=== PATIENT | female | born 1995 | race Two or more races ===

== ENCOUNTER 2019-11-10 04:02 | Emergency (ER) | payer SELFPAY ==
[2019-11-10 06:14] LABS: ABS Lymphocytes 0.8 10^3/ul (1.0-4.8); ABS Monocytes 0.9 10^3/ul (0-0.8); ABS Neutrophils 12.8 10^3/ul (1.5-7.7); Eosinophil % 0.2 %; Hematocrit 40 % (35-47); Hemoglobin 13.7 g/dL (12.0-16.0); Lymphocyte % 5.6 %; Mean Corpuscular HGB Conc 34 g/dL (31-36); Mean Corpuscular Hemoglobin 30 pg (27-31); Mean Corpuscular Volume 86 fL (80-97); Mean Platelet Volume 9.3 fL (7.4-10.4); Platelet Count 238 10^3/uL (150-450); Red Blood Count 4.64 10^6 /uL (3.70-4.87); Red Cell Distribution Width 13 % (10-15); White Blood Count 14.6 10^3/uL (3.5-10.8)
[2019-11-10] MEDS: NS 0.9% 1000 ML** 2,000 ML IV ONE (06:22)
[2019-11-10 06:32] LABS: ALT 15 U/L (7-52); AST 11 U/L (13-39); Albumin 4.4 g/dL (3.2-5.2); Albumin/Globulin Ratio 1.4 (1-3); Alkaline Phosphatase 71 U/L (34-104); Anion Gap 7 mmol/L (2-11); BUN/Creatinine Ratio 15.3 (8-20); Blood Urea Nitrogen 11 mg/dL (6-24); CO2 Carbon Dioxide 25 mmol/L (22-32); Calcium 9.3 mg/dL (8.6-10.3); Chloride 104 mmol/L (101-111); EGFR African American 118.5 (>60); EGFR Non-African American 97.9 (>60); Globulin 3.2 g/dL (2-4); Glucose 109 mg/dL (70-100); Magnesium 1.9 mg/dL (1.9-2.7); Potassium 3.9 mmol/L (3.5-5.0); Sodium 136 mmol/L (135-145); Total Protein 7.6 g/dL (6.4-8.9)
[2019-11-10 06:39] LABS: HCG Pregnancy < 0.60 mIU/mL
[2019-11-10 07:07] LABS: T4, Total 9.53 mcg/dL (6.09-12.23)
--- NOTE | 2019-11-10 07:09 | ED ---
Palpitations / Dysrhythmia - HPI Summary HPI Summary: This patient is a 24-year-old female with history of anxiety who presents to the ED with symptoms of palpitations and heart racing since last evening at around 10 PM. She states she has had this in the past, and usually believes this is related to her anxiety, however it tends to dissipate after several minutes or so. This has been persistent since last night and although she states she has been a little anxious (d/t the heart-racing), she has felt calm for awhile now and still feels this. She continues to feel this way despite being able to sleep. States in 2015, she was seen for same and wore a holter monitor with normal findings. Dx with anxiety. She does admit to being ill recently with cold symptoms such as stuffy nose, rhinorrhea, head cold and mild cough. No production. No abd pain, chest pain, SOB. No recent travel, leg pain, OCP use or smoking history. No back pain, MAN or other symptoms. No current modifying factors. - History of Current Complaint Chief Complaint: EDDysrhythmPalp Time Seen by Provider: 11/10/19 05:40 Hx Obtained From: Patient Onset/Duration: Sudden Onset Timing: Constant Severity Initially: Mild Severity Currently: Mild Character: Fast Aggravating: Rest Associated Signs & Symptoms: Negative - Risk Factors Cardiac: Negative Pulmonary Embolism: Negative Atrial Fibrillation: Negative - Allergy/Home Medications Allergies/Adverse Reactions: Allergies Allergy/AdvReac Type Severity Reaction Status Date / Time No Known Allergies Allergy Verified 08/24/18 15:10 Home Medications: Home Medications NK [No Home Medications Reported] 11/10/19 [History Confirmed 11/10/19] PMH/Surg Hx/FS Hx/Imm Hx Previously Healthy: Yes Endocrine/Hematology History: Denies: Hx Diabetes Cardiovascular History: Denies: Hx Hypertension History: Denies: Hx Renal Disease - Immunization History Date of Influenza Vaccine: 07/2019 Hx Pertussis Vaccination: No Immunizations Up to Date: Yes Infectious Disease History: No Infectious Disease History: Denies: Traveled Outside the [place] in Last 30 Days - Social History Occupation: Employed Full-time Lives: With Family Alcohol Use: None Hx Substance Use: No Substance Use Type: Reports: None Hx Tobacco Use: No Smoking Status (MU): Never Smoked Tobacco Review of Systems Negative: Fever, Chills, Fatigue, Skin Diaphoresis Positive: Palpitations - tachy per patient. Negative: Chest Pain Negative: Shortness Of Breath, Cough Genitourinary: Negative Positive: no symptoms reported, see HPI Negative: Arthralgia, Myalgia Skin: Negative Negative: Headache, Weakness, Paresthesia, Numbness, Syncope Positive: Anxious All Other Systems Reviewed And Are Negative: Yes Physical Exam Triage Information Reviewed: Yes Vital Signs On Initial Exam: Initial Vitals Temp Pulse Resp BP Pulse Ox 98.8 F 159 20 168/101 99 11/10/19 04:03 11/10/19 04:03 11/10/19 04:03 11/10/19 04:03 11/10/19 04:03 Vital Signs Reviewed: Yes Appearance: Positive: Well-Appearing, Well-Nourished Skin: Positive: Warm, Skin Color Reflects Adequate Perfusion Head/Face: Positive: Normal Head/Face Inspection Eyes: Positive: EOMI, MARISSA, Conjunctiva Clear Neck: Positive: Supple, No Lymphadenopathy Respiratory/Lung Sounds: Positive: Clear to Auscultation, Breath Sounds Present Cardiovascular: Positive: Pulses are Symmetrical in both Upper and Lower Extremities, Tachycardia. Negative: Leg Edema Left, Leg Edema Right Musculoskeletal: Positive: Normal, Strength/ROM Intact Neurological: Positive: Sensory/Motor Intact, Alert, Oriented to Person Place, Time, Speech Normal Psychiatric: Positive: Anxious Procedures - Sedation Patient Received Moderate/Deep Sedation with Procedure: No Diagnostics - Vital Signs Vital Signs Temp Pulse Resp BP Pulse Ox 11/10/19 06:25 102 18 132/96 99 11/10/19 04:03 98.8 F 159 20 168/101 99 - Laboratory Lab Results: Lab Results 11/10/19 11/10/19 11/10/19 Range/Units 06:03 06:03 06:03 WBC 14.6 H (3.5-10.8) 10^3/uL RBC 4.64 (3.70-4.87) 10^6 /uL Hgb 13.7 (12.0-16.0) g/dL Hct 40 (35-47) % MCV 86 (80-97) fL MCH 30 (27-31) pg MCHC 34 (31-36) g/dL RDW 13 (10-15) % Plt Count 238 (150-450) 10^3/uL MPV 9.3 (7.4-10.4) fL Neut % (Auto) 88.0 % Lymph % (Auto) 5.6 % Morrison % (Auto) 5.9 % Eos % (Auto) 0.2 % Baso % (Auto) 0.3 % Absolute Neuts (auto) 12.8 H (1.5-7.7) 10^3/ul Absolute Lymphs (auto) 0.8 L (1.0-4.8) 10^3/ul Absolute Monos (auto) 0.9 H (0-0.8) 10^3/ul Absolute Eos (auto) 0.0 (0-0.6) 10^3/ul Absolute Basos (auto) 0.0 (0-0.2) 10^3/ul Absolute Nucleated RBC 0.0 10^3/ul Nucleated RBC % 0.0 Sodium 136 (135-145) mmol/L Potassium 3.9 (3.5-5.0) mmol/L Chloride 104 (101-111) mmol/L Carbon Dioxide 25 (22-32) mmol/L Anion Gap 7 (2-11) mmol/L BUN 11 (6-24) mg/dL Creatinine 0.72 (0.51-0.95) mg/dL Est GFR ( Amer) 118.5 (>60) Est GFR (Non-Af Amer) 97.9 (>60) BUN/Creatinine Ratio 15.3 (8-20) Glucose 109 H (70-100) mg/dL Lactic Acid 0.9 (0.5-2.0) mmol/L Calcium 9.3 (8.6-10.3) mg/dL Magnesium 1.9 (1.9-2.7) mg/dL Total Bilirubin 0.50 (0.2-1.0) mg/dL AST 11 L (13-39) U/L ALT 15 (7-52) U/L Alkaline Phosphatase 71 (34-104) U/L Troponin I 0.00 (<0.03) ng/mL Total Protein 7.6 (6.4-8.9) g/dL Albumin 4.4 (3.2-5.2) g/dL Globulin 3.2 (2-4) g/dL Albumin/Globulin Ratio 1.4 (1-3) TSH Pending Thyroxine (T4) Pending Beta HCG, Quant < 0.60 mIU/mL Result Diagrams: 11/10/19 06:03 11/10/19 06:03 Lab Statement: Any lab studies that have been ordered have been reviewed, and results considered in the medical decision making process. Course/Dx - Course Course Of Treatment: Patient was noted to be tachycardic at 159 on arrival. Other vital signs are stable. She is afebrile. EKG shows sinus tachycardia with a rate of 143 after patient arrived in the room. She does not appear to be anxious, however she does have a cough on exam. Patient is not diaphoretic and nontoxic appearing. Lungs CTA, tachy. Labs obtained which are WNL including a troponin of 0.00. She does not have elevated white count, but no other clinical signs of infection. She was given 2L fluids. Influenza negative. Continues to remain tachy, although less between 125-135. Pt was given Ativan 1mg. She states this improved her anxiety, and she denies any anxious feelings on re-examination. However, monitor continues to show persistent tachy with sinus. CTA and drug screen obtained. Drug screen pending , CTA negative for any PE. Continues to be tachycardic at 130. Discussed this with hospitalist, Dr. Talley who will accept for admission. - Diagnoses Provider Diagnoses: Tachycardia - Physician Notifications Discussed Care Of Patient With: Kj Talley Instructed by Provider To: Admit As Inpatient Discharge ED - Sign-Out/Discharge Documenting (check all that apply): Patient Departure - Discharge Plan Condition: Fair Disposition: ADMITTED TO [facility] Patient Education Materials: Anxiety (ED), Tachycardia (ED) Referrals: Gera Loya PA [Primary Care Provider] - Wiliam Machuca DO [Medical Doctor] - Additional Instructions: I recommend following up with cardiology This may be related to your anxiety, however due to the persistence of this tachycardia, I suggest following up for another workup through our cardiology department If you develop any shortness of breath or chest pain, please return to the ED Drink plenty of water - Billing Disposition and Condition Condition: FAIR Disposition: Admitted to [facility]
[2019-11-10 07:11] LABS: TSH (Thyroid Stimulating Horm) 1.09 mcIU/mL (0.34-5.60)
[2019-11-10] MEDS ORDERED: LORazepam INJ* 2 MG/ML 1 ML VIAL IV PUSH ONE (08:00)
[2019-11-10] MEDS ORDERED: Lorazepam PYXIS KEY PRN (08:00)
[2019-11-10] MEDS ORDERED: Lorazepam PYXIS KEY ONE (08:11)
[2019-11-10 08:19] LABS: Influenza A Molecular Negative (Negative); Influenza B Molecular Negative (Negative)
[2019-11-10] MEDS ORDERED: NS 0.9% 1000 ML** 1,000 ML IV ONE (08:43)
[2019-11-10] MEDS ORDERED: Iohexol 350* (CONTRAST) 500 ML MDV IV ONE (09:34)
[2019-11-10] MEDS ORDERED: Perflutren Lipid Microsphere* 3 ML VIAL ONE (14:27)
--- NOTE | 2019-11-10 15:01 | CONS ---
HOSPITAL MEDICINE CONSULTATION REPORT: DATE OF CONSULT: 11/10/19 - EMERGENCY DEPT PROVIDER: Keisha Elam NP. ATTENDING PROVIDER: KEILA Bender. CONSULTING PHYSICIAN: Kj Talley MD (dictated by Keisha Elam NP). REASON FOR CONSULT: Tachycardia. HISTORY OF PRESENT ILLNESS: Ms. Mandujano is a 24-year-old female with past medical history significant for anxiety, mild acid reflux, history of left foot edema, who presented to the emergency room with complaints of palpitations. The patient reports that last evening she was having hot and cold episodes and that at approximately 10:30 last night, she started having palpitations and high heart rates. The patient reports that she was able to sleep on and off and at approximately 4:30 this morning, the palpitations were worse, so she presented to the emergency room for further evaluation. The patient does report that she recently started with rhinorrhea and a sore throat. The patient denies any excessive use of caffeine. The patient does report that she drinks 2 cups of Vietnamese press coffee daily. Denies any other soda intake. She denies any over-the- counter medications. Denies any other caffeine intake such as Monster. She denies any tobacco use. She denies any recent travel. The patient does report she did receive influenza vaccine in the fall. While in the emergency room, the patient had routine lab work drawn. She had a troponin that was negative. She was persistently tachycardic with an EKG showing sinus tachycardia in the 130s to 140s. Due to these findings, Hospital Medicine was asked to see and evaluate the patient for admission. PAST MEDICAL HISTORY: Significant for: 1. Anxiety, untreated. 2. GERD, untreated. 3. Left foot edema, chronic. PAST SURGICAL HISTORY: None. HOME MEDICATIONS: None. ALLERGIES: No known drug allergies. FAMILY HISTORY: Paternal grandfather with a history of stroke. Father with hypertension. Paternal grandfather and father with diabetes. Mother with cervical cancer. SOCIAL HISTORY: Denies any tobacco, alcohol, or illicit drug use. She lives with her sister. Surrogate decision maker in the event she is unable to make her own decisions is her sister. She is a full code. REVIEW OF SYSTEMS: She does report feeling cold and hot, but unknown about fevers. She denies any chest pain, edema, cough, hemoptysis, shortness of breath. No nausea, vomiting, diarrhea, or abdominal pain. She denies any gross hematuria, dysuria, focal weakness, sensory loss, visual complaints, dysphagia, arthralgias, myalgias, rashes, lesions, open sores, psychosis, or anxiety. PHYSICAL EXAM: General: At this time, Ms. Mandujano is a 24-year-old female, she is alert and oriented x3, resting on the stretcher in the emergency room, she is in no acute distress. Vital Signs: Blood pressure 123/91, heart rate 124, respirations 21, O2 saturation 98%, temperature was 98.8. HEENT: Head is atraumatic, normocephalic. Eyes: EOMs are intact. Sclerae anicteric and not pale. Oral mucosa is moist. Neck is supple. Lungs are clear to auscultation bilaterally. No wheezes, rales, or rhonchi. Cardiac: S1, S2. Tachycardic. No murmurs, rubs, or gallops. Abdomen is soft and nontender. Bowel sounds are present x4. Extremities: She is able to move all 4 extremities. No clubbing or cyanosis. Pedal pulses are +2 bilaterally. Neurologic: She is awake, alert , oriented x3. Speech is clear. Thought process is intact. Skin is intact. LABORATORY DATA AND DIAGNOSTIC STUDIES: WBCs are 14.6, RBCs 4.64, hemoglobin 13.7, hematocrit is 40, platelet count is 238. Sodium 136, potassium 3.9, chloride 104, carbon dioxide is 25, anion gap of 7, BUN is 11, creatinine 0.72, glucose is 109. Lactic acid 0.9. Calcium 9.3. Magnesium 1.9. Total bilirubin 0.50, AST is 11, ALT is 15, alkaline phosphatase is 71. Troponin is 0.00 x2. Beta-hCG quantitative is less than 0.60. TSH is 1.09, T4 is 9.53. Flu A and B are both negative. She had a CTA of the chest, limited study. Within the limitations of the study , there is no pulmonary artery filling defect to suggest pulmonary embolism. She had a chest x-ray, radiologist's impression: No active cardiopulmonary disease. She had electrocardiogram, which showed sinus tachycardia at a rate of 129, no ST or T wave changes. IMPRESSION AND PLAN: Ms. Mandujano is a 24-year-old female with a past medical history significant for anxiety, gastroesophageal reflux disease, and lymphedema to the left foot, who presented to the emergency room with complaints of palpitations. Our recommendations are as follows: Palpitations. I would get a transthoracic echocardiogram. We will start her on propranolol 10 mg for tachycardia. If her transthoracic echocardiogram is within normal limits, I feel the patient could be discharged home and follow up with her primary care provider as an outpatient for further evaluation of her chronic tachycardia. I suspect that this tachycardia could be exacerbated by her anxiety and propranolol should help with anxiety and her tachycardia. I have discussed this with Khloe Mendes in the emergency room. She is in agreement with the plan. Discharge instructions will be given per the emergency room. The patient can return to the emergency room as needed for palpitations associated with chest pain and shortness of breath. I have discussed this with my attending Dr. Kareem Talley; he is in agreement with my plan. KEISHA ELAM, ELROY [id number]/[facility] #: [id number] HAIM
--- NOTE | 2019-11-10 15:17 | ECHO ---
*[facility]* [place] [address] Fax #: [phone] Transthoracic Echocardiogram Patient: Avelina Rosario : 1995 Study Date: 11/10/2019 Age: 24 Gender: F HR: 106 bpm Height: 68 in /172.7 cm BSA: 1.98 m^2 Weight: 185.6 lb /84.4 kg BMI: 28.3 kg/m^2 *[employer]: * Maria Isabel Galeano [facility] [[email or web address]] RN *Referring Physician: * Kj Talley *Reading Physician: * Isidra June MD Indications: Abnormal EKG. Sinus tachycardia. History: Palpitations. Tachycardia. Anxiety. Risk factors: Obese. Conclusions Summary: - Left ventricle: Systolic function is vigorous. The estimated ejection fraction is 60-65%. - Right ventricle: Systolic function is hyperdynamic. - All valves appear structurally normal with normal function. - Tricuspid valve: There is trace regurgitation. - Pulmonary arteries: Systolic pressure can not be accurately estimated. - No prior echocardiogram to compare. Study data: Transthoracic echocardiogram. Procedure: Transthoracic echocardiography was performed. Image quality was fair. The study was technically limited due to body habitus. Intravenous Definity 2 ml was administered to enhance imaging. Complete 2D, spectral Doppler, and color flow Doppler. Location: Emergency department. Patient status: Outpatient. Patient room number: ED 19. Rhythm: Tachycardia. Findings Left ventricle: The cavity size is normal. Wall thickness is normal. Systolic function is vigorous. The estimated ejection fraction is 60-65%. Wall motion is normal; there are no regional wall motion abnormalities. Left ventricular diastolic function parameters are normal. Right ventricle: The cavity size is normal. Systolic function is hyperdynamic. Left atrium: The atrium is normal in size. Right atrium: The atrium is normal in size. Mitral valve: The leaflets are normal thickness. There is no evidence of stenosis. There is no significant regurgitation. Aortic valve: Not well visualized. The leaflets are normal thickness. There is no evidence of stenosis. There is no regurgitation. Tricuspid valve: The valve is structurally normal. There is no evidence of stenosis. There is trace regurgitation. Pulmonic valve: Not well visualized. There is no evidence of stenosis. There is trace regurgitation. Aorta: Aortic root: The aortic root is appears normal. Ascending aorta: The ascending aorta is not dilated. Aortic arch: The aortic arch is not dilated. Pericardium: There is no pericardial effusion. Pulmonary arteries: Not well visualized. Systolic pressure can not be accurately estimated. Systemic veins: Inferior vena cava: The vessel is normal in size. There is (>= 50%) respiratory change in the IVC dimension. Measurements Left ventricle Value Ref Aortic valve Value Ref BECKA, LAX 4.1 cm 3.8 - Keisha diam, ED 2.0 cm ---- 5.2 Peak v, S 1.38 m/sec ---- ESD, LAX 2.7 cm 2.2 - VTI, S 25.5 cm ---- 3.5 Mean grad, S 4.0 mm Hg ---- FS, LAX 33 % 27 - 45 Peak grad, S 8.0 mm Hg ---- PW, ED (H) 1.0 cm 0.6 - LVOT/AV, VTI ratio 0.64 ---- 0.9 IVS/PW, ED 0.91 -------- Mitral valve Value Ref E', lat keisha, TDI 14.0 cm/sec >=10.0 Peak E 1.1 m/sec -- -- E/e', lat keisha, TDI 8 -------- Peak A 0.89 m/sec ---- E', med keisha, TDI 10.4 cm/sec >=7.0 Decel time 106 ms -- -- E/e', med keisha, TDI 11 -------- Peak grad, D 4.8 mm Hg ---- E', avg, TDI 12.2 cm/sec -------- Peak E/A ratio 1.24 ---- E/e', avg, TDI 9 <=14 Pulmonic valve Value Ref LVOT Value Ref Peak v, S 0.99 m/sec ---- Peak omar, S 0.99 m/sec -------- Peak grad, S 4.0 mm Hg ---- VTI, S 16.4 cm -------- Mean grad, S 2 mm Hg -------- Aortic root Value Ref Root diam 2.4 cm <3.7 Ventricular septum Value Ref IVS, ED 0.9 cm 0.6 - Ascending aorta Value Ref 0.9 AAo AP diam, S 2.2 cm ---- Right ventricle Value Ref Aortic arch Value Ref BECKA, LAX 2.8 cm -------- Arch diam 2.1 cm ---- BECKA minor ax, A4C 3.0 cm 1.9 - mid 3.5 Decending aorta Value Ref Hector peak omar 1.5 m/sec ---- Left atrium Value Ref ML dim, A4C 3.2 cm -------- Inferior vena cava Value Ref SI dim, A4C 3.6 cm -------- Diam 1.6 cm ---- Vol/bsa, ES, 1-p (L) 10 ml/m^2 11 - 40 A4C Vol/bsa, ES, A/L 18 ml/m^2 16 - 34 Right atrium Value Ref ML dim, ES, A4C 3.2 cm 2.6 - 4.4 SI dim, ES, A4C 3.7 cm 3.4 - 5.3 Estimated RAP 3 mm Hg -------- Legend: (L) and (H) emma values outside specified reference range. Prepared and electronically signed by Isidra June MD 11/10/2019 15:17
[2019-11-10 16:21] VITALS: BP 136/98
== END 2019-11-10 16:19 | disposition short-term general hospital (02) ==
LOC: ED 04:02
DX: R00.0 Tachycardia, unspecified (principal); F41.9 Anxiety disorder, unspecified; K21.9 Gastro-esophageal reflux disease without esophagitis
CPT/HCPCS: 36415; 71045; 71275; 80053; 83605; 83735; 84436; 84443; 84484; 84702; 85025; 93005; 93306; 96361; 96374; 99283; A9270-GY; C8929; J2060; Q9967